=== PATIENT | male | born 1950 | race Caucasian/White ===

== ENCOUNTER → 2017-03-12 19:38 | Outpatient (CLI) | payer MEDICARE ==
[~2017-03-12 19:38] MED LIST: HYDROCODONE-APA1 TAB PO; METHOTREXATE2.5 MG PO; PERCOCET 10/3251 TA1 PO
== END | disposition home or self-care (01) ==
LOC: D.LAB 19:38
DX: M19.011 Primary osteoarthritis, right shoulder (principal); Z11.8 Encounter for screening for other infectious and parasitic diseases

== ENCOUNTER 2017-03-23 10:10 | Inpatient (IN) | payer MEDICARE, BC ==
[2017-03-19 09:12] LABS: APPEARANCE CLEAR (CLEAR); BASOPHILS 0.2 % (0-2); BILIRUBIN NEGATIVE (NEGATIVE); COLOR YELLOW (YELLOW); EOSINOPHILS 1.1 % (0-7); GLUCOSE NEGATIVE (NEGATIVE); HEMATOCRIT 44.1 % (42.0-54.0); HEMOGLOBIN 15.2 g/dL (13.5-17.5); IMMATURE GRANULOCYTES 0.8 % (0-5); KETONE NEGATIVE (NEGATIVE); LYMPHOCYTES 18.1 % (15-50); MCH 34.9 pg (26.0-34.0); MCHC 34.5 g/dL (31.0-37.0); MCV 101.4 fL (80.0-100.0); MONOCYTES 8.6 % (2-11); NEUTROPHILS 71.2 % (40-80); NITRITE NEGATIVE (NEGATIVE); PLATELET COUNT 134 10x3/uL (130-400); PROTEIN NEGATIVE (NEGATIVE); RBC 4.35 10x6/uL (4.20-6.10); RDW 13.7 % (11.5-14.5); SPECIFIC GRAVITY 1.015 (1.005-1.020); UROBILINOGEN NORMAL (NORMAL); WBC 6.4 10x3/uL (4.8-10.8)
[2017-03-19 09:19] LABS: CALC OSMOLALITY 273 mosm/kg (275-300); CALCIUM 9.3 mg/dL (8.5-10.1); CARBON DIOXIDE 30.8 mmol/L (21.0-32.0); CHLORIDE - SERUM 100 mmol/L (98-107); CREATININE - SERUM 0.9 mg/dL (0.6-1.3); GLUCOSE 112 mg/dL (74-106); POTASSIUM - SERUM 4.3 mmol/L (3.5-5.1); SODIUM 136 mmol/L (136-145); UREA NITROGEN 15 mg/dL (7-18); eGFR NON AFRICAN AMERICAN 90 mL/min (90-120)
[2017-03-19 09:23] LABS: APTT 27.9 SECONDS (22.8-39.4); INR 1.01 (0.85-1.17); PROTIME 13.2 SECONDS (11.6-15.0)
[2017-03-23] VITALS (9 sets, daily range): BP systolic 137–163; BP diastolic 79–96; BMI 31.6
[~2017-03-23 10:10] MED LIST changes: -PERCOCET 10/3251 TA1 PO
--- NOTE | 2017-03-23 16:55 | NUR ---
PT RECIEVED FROM PACU. CONT BLOCK TO RIGHT SHOULDER-ARM IN SLING. ABLE TO MOVE THUMB-ONLY APPENDAGE NOT WRAPPED. DRESSINGS CLEAN DRY AND INTACT. OXYGEN AT 2LNC. FAMILY AT BEDSIDE. BED ALARM ON FOR SAFETY
--- NOTE | 2017-03-23 23:10 | NUR ---
REC'D AT [facility]. OF SHIFT REC'D. IN BED IN SITTING POSITION.DRSG. RT. SHOULDER INTACT.WITH CONTINUOUS BLK. INFUSING.DENIES PAIN AT PRESENT TIME.GOOD RADIAL PULSE.SLING INTACT ACEWRAP DRY AND INTACT TO RIGHT HAND THUMB VISIBLE. NAILBED BLANCHES WITHOUT DIFFICULTY.UP ON PILLOW.WILL CONTINUE TO MONITOR FOR ANY CHGES. IN NEUROVASCULAR STATUS AND FOLLOW CURRENT PLAN OF CARE.
[2017-03-24] VITALS: BP 145/73
[2017-03-24 04:00] VITALS: BP 136/71
[2017-03-24 06:24] LABS: HEMATOCRIT 37.5 % (42.0-54.0); MCH 34.7 pg (26.0-34.0); MCHC 34.7 g/dL (31.0-37.0); MEAN PLATELET VOLUME 9.2 fL (7.4-10.4); RBC 3.75 10x6/uL (4.20-6.10); RDW 13.4 % (11.5-14.5); WBC 7.4 10x3/uL (4.8-10.8)
--- NOTE | 2017-03-24 07:30 | NUR ---
RECIEVED PT DURING WALKING ROUNDS. PT RESTING IN BED WITH NO COMPLAINTS OF PAIN OR DISCOMFORT AT THIS TIME. ASSESSMENT DONE PER FLOWSHEET. PT HAS FLUID LEAKING AROUND EPIDURAL SITE. ASSEMBLER AND TESTER ELECTRONICS ANESTHSIA CALLED. BED IN LOW POSITION AND CALL LIGHT WITHIN REACH. WILL CONTINUE TO MONITOR.
[2017-03-24] MEDS ORDERED: PERCOCET 10/3251 TA1 PO (08:15)
--- NOTE | 2017-03-24 08:33 | NUR ---
Visited with patient to assess discharge planning needs. Patient denies any needs at this time and stated that his son will drive him home at discharge. patient discharging home today
--- NOTE | 2017-03-24 11:25 | NUR ---
EPIDURAL REMOVED BY DR. STARKS'S AT THIS TIME. PT WILL DISCHARGE IN APPROX 1 HOUR. WILL CONTINUE TO MONITOR.
--- NOTE | 2017-03-24 12:56 | NUR ---
IV REMOVED AND DISCHARGE INSTRUCTIONS GIVEN. PT DISCHARGED VIA WHEELCHAIR TO HOME WITH A FAMILY MEMBER.
--- NOTE | 2017-03-26 09:44 | OP ---
PATIENT NAME: MARGA KUMAR MEDICAL RECORD: [id number] :52 LOCATION:D.MS Sosa2210 ADMISSION DATE:03/23/17 SURGEON: ANDREINA MARIE MD DATE OF OPERATION: 03/23/2017 Orthopedic Surgery Operative Note PREOPERATIVE DIAGNOSES: Degenerative arthritis of the right shoulder and carpal tunnel syndrome of the right upper extremity. POSTOPERATIVE DIAGNOSES: Degenerative arthritis of the right shoulder and carpal tunnel syndrome of the right upper extremity. PROCEDURES: 1. Right total shoulder arthroplasty. 2. Right carpal tunnel release. SURGEON: Andreina Marie MD ANESTHESIA: General. INTRAOPERATIVE COMPLICATIONS: None. SUMMARY OF PATHOLOGIC FINDINGS: The patient had severe degenerative arthritis of the shoulder along with a preoperative diagnosis carpal tunnel syndrome by EMGs and NCVS OPERATIVE SUMMARY IN DETAIL: After obtaining the appropriate preoperative orthopedic surgical consent as well as anesthetic consultation, evaluation and clearance, the patient was brought to the operating room and placed on the operating table in supine position. After adequate general laryngeal mask was administered, the patient was placed in the beach chair position. All pressure points were well padded to include bilateral lower heel. She was held firmly to the operating table using the vacuum pack suction system. Right upper extremity and shoulder were then prepped and draped in routine sterile fashion. The arm was held in the Trimano arm holding device. Attention was first turned to the shoulder. Deltopectoral incision was taken down to the clavipectoral fascias. The cephalic vein was identified and protected throughout the entire case. Clavipectoral fascia was incised. Deltoid was then retracted laterally with a brown retractor. The conjoined tendon was gently retracted medially. Subscapularis was taken down. The biceps tendon was cut and saved for later tenodesis. The shoulder was then dislocated into the incision where the proximal humeral head cut was made using the humeral head cutting guide for Arthrex total shoulder arthroplasty. Serial and sequential reaming and broaching were done. Size 7 trial was left in place with the humeral head cut protector in place. The glenoid was then broached. Circumferential labrectomy was then followed by placement of the pin for reaming. Reaming was then followed by the appropriate drilling and glenoid preparation for placement of the vault lock glenoid from Arthrex. Size medium vault lock glenoid was cemented into place with good fit and fill. This was held in place while the cement was allowed to harden, all excess cement was removed. Having completed this, the cavity was irrigated and then attention was returned to the proximal humerus. The proximal humeral trial was removed and the final size 7 prosthesis was [address] into [address] with good fit and fill. The inferior and superior screws were both tightened appropriately. At this point, a 51 x 19 with the offset OPERATIVE REPORT [id number] NIX,MARGA P head was placed for the appropriate posterior superior coverage. This was tamped into place with Ruth taper. The shoulder was reduced and found to have the appropriate amount of posterior translation. Wound was then copiously irrigated and the subscapularis was reapproximated transosseously back to the lesser tuberosity. Having completed this, wound was then irrigated and the wound closure was achieved with #1 Vicryl, 2-0 Vicryl and skin jerman. At this point, attention was then turned to the lower aspect of the right extremity. Esmarch bandage was used to create a tourniquet. It was put into place. Incision was made in line with the fourth metacarpal ray and taken down the transverse carpal ligament. The median nerve was identified and then the transverse carpal ligament was incised in its entirety under direct visualization while protecting the median nerve. This was irrigated and closed with 4-0 Prolene in a combination of both mattress and simple sutures. The area was locally infiltrated with 0.25% Marcaine plain. Sterile dressings were applied at both incision sites. The patient was awakened and taken to recovery in stable condition. All final needle and sponge counts were correct. TRANSINT:[id number] Voice Confirmation ID: [id number] DOCUMENT ID: [id number] FRANK POSADA, ANDREINA CH at 0944 CC: [id number] DICTATION DATE: 03/23/17 1604 LINT CLEANER: 03/24/1721 DIS IN 03/24/17 [place] [id number] [place] [address]
== END 2017-03-24 12:58 | disposition home or self-care (01) | DRG 483 ==
LOC: D.MS 10:10 → D.SDCHOLD 10:10 → D.MS 16:16
PROVIDERS: ADMIT Orthopaedic Surgery
PROC: 01N50ZZ Release Median Nerve, Open Approach (ICD-10-PCS; principal; 2017-03-23 12:15)
PROC: 0RRJ0JZ Replacement of Right Shoulder Joint with Synthetic Substitute, Open Approach (ICD-10-PCS; 2017-03-23 12:15)
DX: M19.011 Primary osteoarthritis, right shoulder (principal); G56.01 Carpal tunnel syndrome, right upper limb

== ENCOUNTER 2017-10-26 09:35 | Day surgery (SDC) | payer MEDICARE, BC ==
[2017-10-23 10:19] LABS: HEMATOCRIT 43.8 % (42.0-54.0); HEMOGLOBIN 15.1 g/dL (13.5-17.5); MCH 32.8 pg (26.0-34.0); MCHC 34.5 g/dL (31.0-37.0); MEAN PLATELET VOLUME 9.3 fL (7.4-10.4); RBC 4.61 10x6/uL (4.20-6.10); RDW 13.4 % (11.5-14.5); WBC 8.5 10x3/uL (4.8-10.8)
[~2017-10-26] VITALS: Ht 165.1 cm; Wt 86.2 kg
--- NOTE | ~2017-10-26 | OP ---
PATIENT NAME: MARGA KUMAR MEDICAL RECORD: [id number] :52 LOCATION:DKylerOPS ADMISSION DATE: SURGEON: ANDREINA MARIE MD DATE OF OPERATION: 10/26/2017 PREOPERATIVE DIAGNOSIS: Carpal tunnel syndrome of the left wrist. POSTOPERATIVE DIAGNOSIS: Carpal tunnel syndrome of the left wrist. PROCEDURE: Left carpal tunnel release. SURGEON: Andreina Marie MD ANESTHESIA: General laryngeal mask airway. INTRAOPERATIVE COMPLICATIONS: None. SUMMARY OF PATHOLOGIC FINDINGS: The patient had a very tight transverse carpal ligament consistent with the preoperative diagnosis and EMG of carpal tunnel syndrome. OPERATIVE SUMMARY IN DETAIL: After obtaining the appropriate preoperative orthopedic surgery consent as well as anesthetic consultation, evaluation and clearance, the patient was brought to the operating room and placed on the operating table in supine position. After general laryngeal mask airway was administered, tourniquet was placed on the proximal aspect of the left upper extremity. Left upper extremity was then prepped and draped in routine sterile fashion. The arm was elevated and exsanguinated. Tourniquet was inflated to 250 mmHg. Mid palmar crease incision was made, taken down to the level of the distal transverse carpal ligament. Median nerve was identified and protected with the Essex elevator. At this point, the Unirisx light knife protected knife was brought in and the entire transverse carpal ligament was incised under direct visualization as well as utilization of the light knife itself. Having completed this, the median nerve was inspected. The perineurium was intact. The wound was then irrigated and closed using vertical mattress fashion. Local lidocaine and Marcaine was infiltrated into the patient's incision area. Sterile dressings were applied. Tourniquet was deflated. The patient was awakened and taken to recovery room in stable condition. All final needle and sponge counts were counts. TRANSINT:[id number] Voice Confirmation ID: [id number] DOCUMENT ID: [id number] FRANK POSADA, ANDREINA CH at 1333 CC: [id number] DICTATION DATE: 10/26/17 1235 FILAMENT WELDER: 10/26/17 1327 REG [facility] [address] [place] [address]
[~2017-10-26 09:35] MED LIST changes: +PERCOCET 10/3251 TA1 PO
[2017-10-26 09:54] VITALS: BP 134/71; Ht 165.1 cm; Wt 86.2 kg
[2017-10-26] MEDS ORDERED: HYDROCODONE-APA1 TAB PO (12:32)
== END 2017-10-26 14:30 | disposition home or self-care (01) ==
LOC: D.OPS 09:35 → D.PAN 09:40 → D.OPS 11:15 → D.PAN 11:15 → D.OPS 11:35 → D.PAN 11:35 → D.OPS 14:30
PROVIDERS: Anesthesiology
DX: G56.02 Carpal tunnel syndrome, left upper limb (principal); Z01.812 Encounter for preprocedural laboratory examination

== ENCOUNTER → 2018-06-08 10:04 | Outpatient (CLI) | payer MEDICARE, BC ==
[2017-10-26 09:54] VITALS: BMI 31.6
== END | disposition home or self-care (01) ==
LOC: D.US 10:04
DX: R60.0 Localized edema (principal)

== ENCOUNTER → 2018-06-09 17:37 | Outpatient (CLI) | payer MEDICARE, BC ==
[2017-10-26 09:54] VITALS: BMI 31.6
== END | disposition home or self-care (01) ==
LOC: D.LABREF 17:37
DX: M17.11 Unilateral primary osteoarthritis, right knee (principal); Z11.8 Encounter for screening for other infectious and parasitic diseases

== ENCOUNTER 2018-06-26 08:36 | Inpatient (IN) | payer MEDICARE, BC ==
[~2018-06-26] VITALS: Ht 165.1 cm; Wt 85.9 kg
[2018-07-13] MEDS ORDERED: HYDROCODON-ACE1 EAC7 PO (14:01)
[2018-07-13] MEDS ORDERED: COZAAR100 MG PO (14:01)
[2018-07-14 12:06] LABS: BASOPHILS 0.3 % (0-2); EOSINOPHILS 0.9 % (0-7); HEMATOCRIT 43.8 % (42.0-54.0); HEMOGLOBIN 15.4 g/dL (13.5-17.5); IMMATURE GRANULOCYTES 0.8 % (0-5); LYMPHOCYTES 15.8 % (15-50); MCH 32.8 pg (26.0-34.0); MCHC 35.2 g/dL (31.0-37.0); MCV 93.2 fL (80.0-100.0); MEAN PLATELET VOLUME 8.6 fL (7.4-10.4); MONOCYTES 10.3 % (2-11); NEUTROPHILS 71.9 % (40-80); PLATELET COUNT 130 10x3/uL (130-400); RDW 14.5 % (11.5-14.5); WBC 7.9 10x3/uL (4.8-10.8)
[2018-07-14 12:20] LABS: CALC OSMOLALITY 273 mosm/kg (275-300); CALCIUM 9.2 mg/dL (8.5-10.1); CARBON DIOXIDE 24.4 mmol/L (21.0-32.0); CHLORIDE - SERUM 98 mmol/L (98-107); CREATININE - SERUM 0.8 mg/dL (0.6-1.3); GLUCOSE 109 mg/dL (74-106); POTASSIUM - SERUM 4.3 mmol/L (3.5-5.1); SODIUM 136 mmol/L (136-145); UREA NITROGEN 16 mg/dL (7-18); eGFR NON AFRICAN AMERICAN > 90 mL/min (90-120)
[2018-07-14 12:23] LABS: APTT 30.1 SECONDS (22.8-39.4); INR 1.03 (0.85-1.17)
[2018-07-14 12:29] LABS: APPEARANCE CLEAR (CLEAR); BILIRUBIN NEGATIVE (NEGATIVE); COLOR YELLOW (YELLOW); GLUCOSE NEGATIVE (NEGATIVE); KETONE NEGATIVE (NEGATIVE); NITRITE NEGATIVE (NEGATIVE); PROTEIN NEGATIVE (NEGATIVE); SPECIFIC GRAVITY 1.015 (1.005-1.020); UROBILINOGEN NORMAL (NORMAL)
[2018-07-19 06:23] VITALS: BP 133/69; BMI 31.6
--- NOTE | 2018-07-19 08:23 | NUR ---
PLASMA BLADE SET TO 6/8 BOVIE PAD RIGHT FLANK [id number] EXP 04/22/2020
[2018-07-19 09:55] VITALS: BP 117/62
--- NOTE | 2018-07-19 10:11 | NUR ---
RECEIVED PT FROM RECOVERY. VITALS STABLE. NO C/O PAIN. NO S/S OF ACUTE DISTRESS NOTED. KNEE REPLACEMENT TO RIGHT KNEE. PT HAS HX OF HTN. PT RECEIVED FEMORAL/POPLITEAL BLOCK. IV TO LEFT HAND, SL. SITE PATENT WITHOUT REDNESS OR SWELLING. PT DENIES ANYTHING FURTHER AT THIS TIME. CALL LIGHT IN REACH. BED IN LOWEST POSITION. WILL CONTINUE TO MONITOR.
--- NOTE | 2018-07-19 10:47 | OP ---
PATIENT NAME: MARGA KUMAR MEDICAL RECORD: [id number] :52 LOCATION:D.MS Sosa2208 ADMISSION DATE:07/19/18 SURGEON: ANDREINA MARIE MD DATE OF OPERATION: 07/19/2018 PREOPERATIVE DIAGNOSIS: Severe degenerative arthritis of the right knee. POSTOPERATIVE DIAGNOSIS: Severe degenerative arthritis of the right knee. PROCEDURE: Right total knee arthroplasty. SURGEON: Andreina Marie MD HEDIS ABSTRACTOR: HENRIETTA Youngblood INTRAOPERATIVE COMPLICATIONS: None. SUMMARY OF PATHOLOGIC FINDINGS: The patient indeed was found to have severe osteoarthritis consistent with preoperative diagnosis as well as radiographic findings. IMPLANTS USED: Ana Lilia triathlon total knee arthroplasty size 7 distal femur non-polyethylene insert, 7 tibial baseplate, and a 33 patellar component, all cemented. OPERATIVE SUMMARY IN DETAIL: After obtaining the appropriate preoperative orthopedic surgery consent as well as anesthetic consultation, evaluation and clearance, the patient was brought to the operating room and placed on the operating table in supine position. After general laryngeal mask airway was administered, tourniquet was placed on the proximal aspect of the right lower extremity. The right lower extremity was then prepped and draped in routine sterile fashion. The leg was elevated and exsanguinated and tourniquet was inflated to 350 mmHg. A midline incision was taken down for paramedian arthrotomy. Patella was everted. Soft tissue excision was done in the usual fashion. Distal intramedullary guide hole was created for distal intramedullary guided distal femoral cut. The proximal tibia was then exposed in its entirety. The remainder of the meniscal remnants were removed. Intramedullary guide hole was again created for intramedullary guided cut of the proximal tibia. Appropriate measurements were taken for a size 7. Chamfer cuts were made. Final distal femoral and proximal tibial preparations were made for the Press-Fit component. At this point, the patella was arthritic. The surface of the patella was excised and it was made ready for press fitting of the patellar component. Pulsatile irrigation was then followed by drying the bone ends and put the press-fit components in place. The knee was taken through range of motion and found to be stable in all planes. Having completed this, the knee was instilled with a gram of vancomycin and a gram of tobramycin. The paramedian arthrotomy was closed by HENRIETTA Gomez using #2 Ethibond. This was followed by #1 Vicryl, 2-0 Vicryl, and skin jerman. Sterile dressings were applied. Tourniquet was deflated. The patient was awakened, taken to recovery in stable condition. All final needle and sponge counts were correct. TRANSINT:[id number] Voice Confirmation ID: [id number] DOCUMENT ID: [id number] OPERATIVE REPORT [id number] JOSÉ,MARGA MARIE MD, ANDREINA CH at 1047 CC: [id number] DICTATION DATE: 07/19/18 0845 STILL WORKER HELPER: 07/19/18 1013 ADM IN [facility] [address] [place] [address]
[2018-07-19 13:16] VITALS: BP 107/57
[2018-07-19 17:29] VITALS: BP 111/56
--- NOTE | 2018-07-19 19:05 | NUR ---
PT RESTING IN BED, EYES OPEN. NO C/O PAIN. NO S/S OF ACUTE DISTRESS NOTED. PT DENIES ANYTHING FURTHER AT THIS TIME. CALL LIGHT IN REACH. WILL CONTINUE TO MONITOR.
--- NOTE | 2018-07-19 19:45 | NUR ---
PT LYING IN BED, NO SIGNS OF DISTRESS. ALERT AND ORIENTED. CPM TO RIGHT LEG. SCD TO LEFT LEG. PT STATES PAIN 5/10. GAVE NORCO ORDERED. STATES NO OTHER NEEDS OR COMPLAINTS AT THIS TIME. CL IN REACH, WILL CONTINUE TO MONITOR
[2018-07-19 20:00] VITALS: BP 112/61
--- NOTE | 2018-07-20 02:30 | NUR ---
PT STATES PAIN 5/10. GAVE NORCO ORDERED. DENIES OTHER NEEDS. CL IN REACH, WILL CONTINUE TO MONITOR
[2018-07-20 03:04] VITALS: Ht 165.1 cm; Wt 85.9 kg
[2018-07-20 04:00] VITALS: BP 120/65
[2018-07-20 04:44] LABS: HEMATOCRIT 34.2 % (42.0-54.0); HEMOGLOBIN 11.6 g/dL (13.5-17.5); MCH 31.5 pg (26.0-34.0); MCHC 33.9 g/dL (31.0-37.0); MCV 92.9 fL (80.0-100.0); RBC 3.68 10x6/uL (4.20-6.10); RDW 13.9 % (11.5-14.5); WBC 8.3 10x3/uL (4.8-10.8)
--- NOTE | 2018-07-20 07:10 | NUR ---
PT RESTING IN BED. NO ACUTE DISTRESS NOTED. REPORTS PAIN 7/10 AT THIS TIME. TORADOL ADMINISTERED PER MD ORDERS. DRESSING C/D/I. IV TO LEFT HAND INTACT WITH NS @ 100ML/HR INFUSING VIA PUMP. ORDERS RECEIVED TO SALINE LOC IV. COMPLETED AT THIS TIME. GOOD BLOOD RETURN, EASILY FLUSHES. DENIES FURTHER NEEDS AT THIS TIME. CL WITHIN REACH. ENCOURAGED TO CALL WITH NEEDS. WILL CONTINUE TO MONITOR.
[2018-07-20 09:23] VITALS: BP 112/55
--- NOTE | 2018-07-20 11:56 | NUR ---
PT REFUSED TO HAVE BED ALARM OR CHAIR ALARM TURNED ON DUE TO NOISE OF BEEPING ALARMS IN ROOM. STATES HE WILL SIGN A REFUSAL FORM. EXPLAINED FORM TO PT AND HE SIGNED. CALL LIGHT IN REACH
[2018-07-20 14:21] VITALS: BP 129/71
--- NOTE | 2018-07-20 15:18 | MORECARE ---
CASE MANAGEMENT DISCHARGE SUMMARY PATIENT: MARGA KUMAR UNIT: [id number] ADM DATE: 07/19/18 AGE: 68 : 51 SEX: M ROOM/BED: D.2208 AUTHOR: GERARDO ADAMS PHYSICIAN: REFERRING PHYSICIAN: ANDREINA MARIE MD DATE OF SERVICE: 07/20/18 Discharge Plan Patient Name: MARGA KUMAR [facility] : 1950 Planned Disposition: Anticipated Discharge Date: Discharge Date: Expected LOS: Initial Reviewer: [email or web address] Initial Review Date: 07/19/2018 Generated: 07/20/18 4:17 pm Comments DCP- Discharge Planning Updated by [email or web address]: Radha James on 07/20/18 2:[address] attempted to see patient, he was sleeping will attempt to see patient tomorrow Patient Name: MARGA KUMAR Page [id number] at 1518 All edits/amendments must be made on the electronic document DICTATION DATE: 07/20/181516 BLUEPRINT TRACER: XENA 07/20/181516 RPT#: [id number] DC DATE: STATUS: ADM IN [facility] [address] [place] [address] END OF REPORT
[2018-07-20 17:18] VITALS: BP 135/68
[2018-07-20 20:00] VITALS: BP 142/79
--- NOTE | 2018-07-20 20:30 | NUR ---
PT SITTING UP IN BED, NO SIGNS OF DISTRESS. ALERT AND ORIENTED. GAVE PT OXY ORDERED FOR PAIN 12/01. IV LEFT HAND SL. FLUSHES EASILY. SCD LEFT LEG. CPM RIGHT LEG. DENIES OTHER NEEDS AT THIS TIME. CL IN REACH, WILL CONTINUE TO MONITOR
--- NOTE | 2018-07-20 21:30 | NUR ---
TAKEN OFF CPM
--- NOTE | 2018-07-20 22:00 | NUR ---
PT STATED HE DID NOT WANT ANYONE TO COME WAKE HIM UP UNTIL TIME FOR MORNING VITALS AND TO PUT ON THE CPM. INFORMED PT HE WOULD BE REFUSING MIDNIGHT VITALS. PT STATED HE UNDERSTOOD
[2018-07-21 04:00] VITALS: BP 137/71
--- NOTE | 2018-07-21 04:16 | NUR ---
PT STATES PAIN 12/01. GAVE TORADOL ORDERED
[2018-07-21 05:12] LABS: HEMATOCRIT 36.2 % (42.0-54.0); HEMOGLOBIN 12.1 g/dL (13.5-17.5); MCH 31.8 pg (26.0-34.0); MCHC 33.4 g/dL (31.0-37.0); MEAN PLATELET VOLUME 8.9 fL (7.4-10.4); RBC 3.8 10x6/uL (4.20-6.10); RDW 14.4 % (11.5-14.5); WBC 6.6 10x3/uL (4.8-10.8)
[2018-07-21 05:17] LABS: MCV 95.3 fL (80.0-100.0)
--- NOTE | 2018-07-21 07:15 | NUR ---
MORNING ASSESSMENT COMPLETE. SEE ASSESSMENT FLOWSHEET FOR FURTHER DETAILS. PT LYING IN BED AAO X4 TO PERSON, PLACE, TIME, AND SITUATION. DENIES NEEDS AT THSI TIME. CL IN REACH. CPM IN PLACE
[2018-07-21 08:00] VITALS: BP 149/73
[2018-07-21] MEDS ORDERED: PERCOCET 10-321 EAC1 PO (08:20)
[2018-07-21] MEDS ORDERED: ELIQUIS2.5 MG PO (08:20)
--- NOTE | 2018-07-21 09:41 | MORECARE ---
CASE MANAGEMENT DISCHARGE SUMMARY PATIENT: MARGA KUMAR UNIT: [id number] ADM DATE: 07/19/18 AGE: 68 : 51 SEX: M ROOM/BED: D.2208 AUTHOR: GERARDO ADAMS PHYSICIAN: REFERRING PHYSICIAN: ANDREINA MARIE MD DATE OF SERVICE: 07/21/18 Discharge Plan Patient Name: MARGA KUMAR Facility: [facility]:[place] : 1950 Planned Disposition: Home or Self Care Anticipated Discharge Date: Discharge Date: Expected LOS: Initial Reviewer: [email or web address] Initial Review Date: 07/19/2018 Generated: 07/21/18 10:41 am Comments DCP- Discharge Planning Updated by [id number]: Radha James on 07/20/18 2:[address] attempted to see patient, he was sleeping will attempt to see patient tomorrow DCPIA - Discharge Planning Initial Assessment Updated by [email or web address]: Radha James on 07/21/18 9:39 am * Is the patient Alert and Oriented? Yes * How many steps to enter\exit or inside your home? * PCP [facility] * [facility] * Preadmission Environment Home Alone * ADLs Independent * Equipment Bedside Commode Walker * Other Equipment CPM * List name and contact numbers for known caregivers / representatives who currently or will assist patient after discharge: BHARTI (SON) [phone] * Verbal permission to speak to the caregivers and representatives has been obtained from the patient. N/A * Community resources currently utilized None * Additional services required to return to the preadmission environment? Yes * Can the patient safely return to the preadmission environment? Yes * Has this patient been hospitalized within the prior 30 days at any hospital? No External Providers [facility] Contact Date: Service Request Date: Service Type: Resolution: Reviewer: Comments: Last DP export: 07/20/18 2:17 p Patient Name: MARGA KUMAR Page [phone] at 0941 All edits/amendments must be made on the electronic document DICTATION DATE: 07/21/18940 RADAR SIGNAL PROCESSING ENGINEER: XENA 07/21/18940 RPT#: [id number] DC DATE: STATUS: ADM IN [facility] [address] [place] [address] END OF REPORT
--- NOTE | 2018-07-21 09:49 | MORECARE ---
CASE MANAGEMENT DISCHARGE SUMMARY PATIENT: MARGA KUMAR UNIT: [id number] ADM DATE: 07/19/18 AGE: 68 : 51 SEX: M ROOM/BED: D.2208 AUTHOR: GERARDO ADAMS PHYSICIAN: REFERRING PHYSICIAN: ANDREINA MARIE MD DATE OF SERVICE: 07/21/18 Discharge Plan Patient Name: MARGA KUMAR Facility: [facility]:[place] : 1950 Planned Disposition: Home or Self Care Anticipated Discharge Date: Discharge Date: Expected LOS: Initial Reviewer: [email or web address] Initial Review Date: 07/19/2018 Generated: 07/21/18 10:49 am Comments DCP- Discharge Planning Updated by [email or web address]: Radha James on 07/21/18 8:[address] Patient Name: MARGA KUMAR Admission Status: Elective Accout number: [id number] Admission Date: 07-19-2018 : 1950 Admission Diagnosis: Attending: ANDREINA MARIE Current LOS: 2 Anticipated DC Date: Planned Disposition: Home or Self Care Primary Insurance: MEDICARE A & B Discharge Planning Comments: CM met with patient to complete initial dc planning assessment. CM educated patient on the CM role and verbal consent given by patient to complete assessment. Patient lives at home where he states he is independent with his care. At discharge patient plans to return home and feels this is a safe discharge. His daughter will be his bulk tank driver home and will be staying with him a few nights. His son will be his bulk tank driver to his OP PT appointments. He has a walker, CPM, and BSC that was se up by Dr Nj office. CM discussed availability of home health, rehab services, and medical equipment. Patient [facility]. I have made his appointment for ThursdayJuly 23 at 10:30. I spoke with Edison. CM will continue to follow and will assist as needed with dc plans/needs. Bulk Materials Handling Plant Operator: Radha James DCP- Discharge Planning Updated by [email or web address]: Radha James on 07/20/18 2:[address] attempted to see patient, he was sleeping will attempt to see patient tomorrow DCPIA - Discharge Planning Initial Assessment Updated by [email or web address]: Radha James on 07/21/18 9:39 am * Is the patient Alert and Oriented? Yes * How many steps to enter\exit or inside your home? * PCP [facility] * [facility] * Preadmission Environment Home Alone * ADLs Independent * Equipment Bedside Commode Walker * Other Equipment CPM * List name and contact numbers for known caregivers / representatives who currently or will assist patient after discharge: BHARTI (SON) [phone] * Verbal permission to speak to the caregivers and representatives has been obtained from the patient. N/A * Community resources currently utilized None * Additional services required to return to the preadmission environment? Yes * Can the patient safely return to the preadmission environment? Yes * Has this patient been hospitalized within the prior 30 days at any hospital? No Last DP export: 07/21/18 8:41 a Patient Name: MARGA KUMAR Page [phone] at 0949 All edits/amendments must be made on the electronic document DICTATION DATE: 07/21/18948 BUSINESS INSIGHT AND ANALYTICS MANAGER: XENA 07/21/18948 RPT#: [id number] DC DATE: STATUS: ADM IN [facility] [address] [place] [address] END OF REPORT
--- NOTE | 2018-07-21 15:28 | MORECARE ---
CASE MANAGEMENT DISCHARGE SUMMARY PATIENT: MARGA KUMAR UNIT: [id number] ADM DATE: 07/19/18 AGE: 68 : 51 SEX: M ROOM/BED: D.2208 AUTHOR: ANGIE,DOC PHYSICIAN: REFERRING PHYSICIAN: ANDREINA MARIE MD DATE OF SERVICE: 07/21/18 Discharge Plan Patient Name: MARGA KUMAR Facility: [facility]:[place] : 1950 Planned Disposition: Home or Self Care Anticipated Discharge Date: Discharge Date: 07/21/2018 Expected LOS: 0 Initial Reviewer: [email or web address] Initial Review Date: 07/19/2018 Generated: 07/21/18 4:28 pm Comments DCP- Discharge Planning Updated by [email or web address]: Radha James on 07/21/18 8:[address] Patient Name: MARGA KUMAR Admission Status: Elective Accout number: [id number] Admission Date: 07-19-2018 : 1950 Admission Diagnosis: Attending: ANDREINA MARIE Current LOS: 2 Anticipated DC Date: Planned Disposition: Home or Self Care Primary Insurance: MEDICARE A & B Discharge Planning Comments: CM met with patient to complete initial dc planning assessment. CM educated patient on the CM role and verbal consent given by patient to complete assessment. Patient lives at home where he states he is independent with his care. At discharge patient plans to return home and feels this is a safe discharge. His daughter will be his warehouse delivery driver home and will be staying with him a few nights. His son will be his warehouse delivery driver to his OP PT appointments. He has a walker, CPM, and BSC that was se up by Dr Nj office. CM discussed availability of home health, rehab services, and medical equipment. Patient [facility]. I have made his appointment for ThursdayJuly 23 at 10:30. I spoke with Edison. CM will continue to follow and will assist as needed with dc plans/needs. Physician Coding Specialist: Radha James DCP- Discharge Planning Updated by [email or web address]: Radha James on 07/20/18 2:[address] attempted to see patient, he was sleeping will attempt to see patient tomorrow DCPIA - Discharge Planning Initial Assessment Updated by [email or web address]: Radha James on 07/21/18 9:39 am * Is the patient Alert and Oriented? Yes * How many steps to enter\exit or inside your home? * PCP [facility] * [facility] * Preadmission Environment Home Alone * ADLs Independent * Equipment Bedside Commode Walker * Other Equipment CPM * List name and contact numbers for known caregivers / representatives who currently or will assist patient after discharge: BHARTI (SON) [phone] * Verbal permission to speak to the caregivers and representatives has been obtained from the patient. N/A * Community resources currently utilized None * Additional services required to return to the preadmission environment? Yes * Can the patient safely return to the preadmission environment? Yes * Has this patient been hospitalized within the prior 30 days at any hospital? No Last DP export: 07/21/18 8:49 a Patient Name: MARGA KUMAR Page [phone] at 1528 All edits/amendments must be made on the electronic document DICTATION DATE: 07/21/181527 MUSIC THEORY PROFESSOR: XENA 07/21/18 1528 RPT#: [id number] DE DATE:07/21/18 STATUS: DIS IN [facility] [address] [place] [address] END OF REPORT
== END 2018-07-21 12:58 | disposition home or self-care (01) | DRG 470 ==
LOC: D.SDCHOLD 07-19 05:30 → D.MS 07-19 05:30 → D.SDCHOLD 07-19 07:30 → D.MS 07-19 09:35 → D.SDCHOLD 07-19 10:00 → D.MS 07-21 12:58
PROVIDERS: ADMIT Orthopaedic Surgery
PROC: 0SRC0JZ Replacement of Right Knee Joint with Synthetic Substitute, Open Approach (ICD-10-PCS; principal; 2018-07-19 07:30)
DX: M17.11 Unilateral primary osteoarthritis, right knee (principal); I10 Essential (primary) hypertension